=== PATIENT | male | born 1940 | race Caucasian/White ===

== ENCOUNTER 2016-08-07 08:04 | Emergency (ER) | payer OTHER ==
[~2016-08-07] VITALS: Ht 172.7 cm; Wt 59.6 kg
[~2016-08-07 08:04] MED LIST: ADVAIR 100-501 EACH; ADVAIR 250/501 DISK; ADVAIR 250/501 DISK IH; ASPIRIN325 M1; ASPIRIN325 MG PO; Aspirin PO; DAILY VALUE1 EACH PO; DOXYCYCLINE HY100 MG PO; LEVOTHROID25 MCG; LEVOTHYROXINE50 MCG PO; LISINOPRIL10 MG PO; LOPRESSOR25 MG; LOPRESSOR25 MG PO; Levothroid,Synthroid PO; MOBIC7.5 MG PO; PLAVIX75 MG; PLAVIX75 MG PO; PREDNISONE10 MG PO; PREDNISONE50 MG PO; PRILOSEC20 MG PO; SIMVASTATIN40 MG; SPIRIVA RESPIMAT4 GM IH; SPIRIVA1 INHALATI IH; TRAMADOL HCL50 MG PO; Toprol XL PO; VENTOLIN HFA18 GM IH; ZESTRIL,PRINIVI10 M1 PO; ZITHROMAX Z-PA250 MG PO; ZOCOR40 MG PO; Zocor PO; predniSONE PO
[2016-08-07 09:01] LABS: BASOPHIL COUNT 0.2 K/uL (0-0.1); EOSINOPHIL (%) 6.2 % (0-5); EOSINOPHIL COUNT 0.5 K/uL (0-0.3); HEMATOCRIT 46.2 % (38.0-50.0); IMMATURE GRANULOCYTE (%) 0.2 % (0.0-0.7); INSTRUMENT ABS NEUTROPHIL CT 6.2 K/uL; LYMPHOCYTE COUNT 1.3 K/uL (1.0-2.8); MCH 31.8 PG (29.0-34.0); MCV 93.5 FL (86-99); MEAN PLAT.VOLUME 11.5 uM^3 (9.0-12.4); MONOCYTE (%) 6.5 % (3-12); MONOCYTE COUNT 0.6 K/uL (0-0.8); NEUTROPHIL COUNT 6.2 K/uL (1.8-6.4); PLATELET COUNT 198 K/uL (156-360); RBC DIS.WIDTH-CV 12.3 % (11.8-14.6); RBC DIS.WIDTH-SD 42.5 % (39-53); RED BLOOD COUNT 4.94 M/uL (4.00-5.50); WHITE BLOOD COUNT 8.8 K/uL (4.1-10.2)
[2016-08-07 09:12] LABS: CHLORIDE 104 mEq/L (99-109); POTASSIUM 4.5 mEq/L (3.7-5.4); SODIUM 139 mEq/L (136-147)
[2016-08-07 09:13] LABS: GLUCOSE 121 mg/dL (70-99)
[2016-08-07 09:15] LABS: ANION GAP 9 MEQ/L (2-14)
[2016-08-07 09:17] LABS: GFR ESTIMATE (CALCULATED) > 59 mL/min/
[2016-08-07 09:18] LABS: UREA NITROGEN (BUN) 6 mg/dL (9-23)
[2016-08-07 09:22] LABS: TROP-I INTERPRETATION NEGATIVE; TROPONIN-I < 0.01 ng/mL (0.0-0.30)
[2016-08-07] MEDS ORDERED: PREDNISONE50 MG PO (09:42)
[2016-08-07] MEDS ORDERED: DOXYCYCLINE HY100 MG PO (09:42)
[2016-08-07] MEDS ORDERED: DUONEB 2.5-0.5 M3 ML AEROSOL (09:42)
[2016-08-07 10:02] VITALS: BP 158/116
== END 2016-08-07 10:04 | disposition home or self-care (01) ==
LOC: EME 08:04
PROVIDERS: Emergency Medicine
DX: J40 Bronchitis, not specified as acute or chronic (principal); J44.9 Chronic obstructive pulmonary disease, unspecified; I10 Essential (primary) hypertension; E78.5 Hyperlipidemia, unspecified; I25.2 Old myocardial infarction; Z95.5 Presence of coronary angioplasty implant and graft; Z79.82 Long term (current) use of aspirin; Z79.02 Long term (current) use of antithrombotics/antiplatelets; F17.200 Nicotine dependence, unspecified, uncomplicated
CPT/HCPCS: 71010; 80048; 84484; 85025; 93005; 94640; 99281; 99284; J2930; J7040

== ENCOUNTER 2016-08-14 15:13 | Emergency (ER) | payer OTHER ==
[~2016-08-14] VITALS: Ht 172.7 cm; Wt 59.9 kg
[~2016-08-14 15:13] MED LIST changes: +DUONEB 2.5-0.5 M3 ML AEROSOL
[2016-08-14 16:02] LABS: MCH 31.6 PG (29.0-34.0); MCV 92.9 FL (86-99); RBC DIS.WIDTH-CV 12.6 % (11.8-14.6); RBC DIS.WIDTH-SD 43.2 % (39-53); RED BLOOD COUNT 5.06 M/uL (4.00-5.50)
[2016-08-14 16:11] LABS: CHLORIDE 103 mEq/L (99-109); POTASSIUM 4.1 mEq/L (3.7-5.4); SODIUM 139 mEq/L (136-147)
[2016-08-14 16:13] LABS: GLUCOSE 94 mg/dL (70-99)
[2016-08-14 16:14] LABS: ANION GAP 10 MEQ/L (2-14)
[2016-08-14 16:16] LABS: GFR ESTIMATE (CALCULATED) > 59 mL/min/
[2016-08-14 16:17] LABS: UREA NITROGEN (BUN) 8 mg/dL (9-23)
[2016-08-14 16:43] LABS: TROP-I INTERPRETATION NEGATIVE; TROPONIN-I < 0.01 ng/mL (0.0-0.30)
[2016-08-14 16:50] LABS: HEMATOLOGY COMMENT 1 SN; MEAN PLAT.VOLUME 11.5 uM^3 (9.0-12.4); PLAT.SUFFICIENCY ADEQUATE; PLATELET COUNT 213 K/uL (156-360)
[2016-08-14 18:00] VITALS: BP 117/94
[2016-08-14] MEDS ORDERED: AZITHROMYCIN250 MG1 PO (18:12)
[2016-08-14] MEDS ORDERED: PROVENTIL,2.5 MG/3 M IH (18:12)
[2016-08-14] MEDS ORDERED: PREDNISONE50 MG PO (18:12)
== END 2016-08-14 18:27 | disposition home or self-care (01) ==
LOC: EME 15:13
DX: J44.1 Chronic obstructive pulmonary disease with (acute) exacerbation (principal); E78.5 Hyperlipidemia, unspecified; I10 Essential (primary) hypertension; I25.2 Old myocardial infarction; Z98.61 Coronary angioplasty status; Z79.82 Long term (current) use of aspirin; Z79.01 Long term (current) use of anticoagulants; F17.200 Nicotine dependence, unspecified, uncomplicated
CPT/HCPCS: 71010; 80048; 84484; 85027; 93005; 94644; 99281; 99284; J2930

== ENCOUNTER 2016-09-05 17:00 | Emergency (ER) | payer OTHER ==
[~2016-09-05] VITALS: Ht 172.7 cm; Wt 57.5 kg
[~2016-09-05 17:00] MED LIST changes: +AZITHROMYCIN250 MG1 PO; +PROVENTIL,2.5 MG/3 M IH
[2016-09-05 19:25] LABS: HEMATOCRIT 46.1 % (38.0-50.0); MCH 31.3 PG (29.0-34.0); MCHC 33.6 G/DL (30.0-36.0); MCV 92.9 FL (86-99); MEAN PLAT.VOLUME 11.7 uM^3 (9.0-12.4); PLATELET COUNT 211 K/uL (156-360); RED BLOOD COUNT 4.96 M/uL (4.00-5.50); WHITE BLOOD COUNT 10.1 K/uL (4.1-10.2)
[2016-09-05 19:33] LABS: CHLORIDE 105 mEq/L (99-109); POTASSIUM 4.5 mEq/L (3.7-5.4); SODIUM 139 mEq/L (136-147)
[2016-09-05 19:35] LABS: GLUCOSE 93 mg/dL (70-99)
[2016-09-05 19:37] LABS: ANION GAP 9 MEQ/L (2-14)
[2016-09-05 19:39] LABS: GFR ESTIMATE (CALCULATED) > 59 mL/min/
[2016-09-05 19:40] LABS: UREA NITROGEN (BUN) 10 mg/dL (9-23)
[2016-09-05 19:47] LABS: TROP-I INTERPRETATION NEGATIVE; TROPONIN-I < 0.01 ng/mL (0.0-0.30)
[2016-09-05] MEDS ORDERED: PROAIR HFA8.5 GM IH (20:38)
[2016-09-05] MEDS ORDERED: PREDNISONE20 MG PO (20:38)
[2016-09-05] MEDS ORDERED: PROVENTIL,2.5 MG/3 M IH (20:38)
[2016-09-05 21:01] VITALS: BP 116/97
== END 2016-09-05 21:02 | disposition home or self-care (01) ==
LOC: EME 17:00
PROVIDERS: Emergency Medicine
DX: J44.1 Chronic obstructive pulmonary disease with (acute) exacerbation (principal); I10 Essential (primary) hypertension; E78.5 Hyperlipidemia, unspecified; I25.2 Old myocardial infarction; F17.200 Nicotine dependence, unspecified, uncomplicated; Z95.5 Presence of coronary angioplasty implant and graft
CPT/HCPCS: 71010; 80048; 84484; 85027; 93005; 94640; 99281; 99285; J2930

== ENCOUNTER 2016-09-14 07:52 | Emergency (ER) | payer OTHER ==
[~2016-09-14] VITALS: Ht 172.7 cm; Wt 56.5 kg
[~2016-09-14 07:52] MED LIST changes: +PREDNISONE20 MG PO; +PROAIR HFA8.5 GM IH
[2016-09-14 08:31] LABS: HEMATOCRIT 46.3 % (38.0-50.0); MCH 31.5 PG (29.0-34.0); MCHC 33.5 G/DL (30.0-36.0); MCV 94.1 FL (86-99); RBC DIS.WIDTH-CV 11.8 % (11.8-14.6); RBC DIS.WIDTH-SD 40.8 % (39-53); RED BLOOD COUNT 4.92 M/uL (4.00-5.50)
[2016-09-14 08:34] LABS: CHLORIDE 103 mEq/L (99-109); POTASSIUM 4.6 mEq/L (3.7-5.4); SODIUM 139 mEq/L (136-147)
[2016-09-14 08:36] LABS: GLUCOSE 158 mg/dL (70-99)
[2016-09-14 08:38] LABS: ANION GAP 10 MEQ/L (2-14)
[2016-09-14 08:40] LABS: GFR ESTIMATE (CALCULATED) > 59 mL/min/
[2016-09-14 08:41] LABS: UREA NITROGEN (BUN) 13 mg/dL (9-23)
[2016-09-14 08:44] LABS: WHITE BLOOD COUNT 18.5 K/uL (4.1-10.2)
[2016-09-14 08:46] LABS: TROP-I INTERPRETATION NEGATIVE; TROPONIN-I < 0.01 ng/mL (0.0-0.30)
[2016-09-14 09:32] LABS: MEAN PLAT.VOLUME 11.6 uM^3 (9.0-12.4); PLAT.SUFFICIENCY ADEQUATE; PLATELET COUNT 215 K/uL (156-360)
[2016-09-14 12:21] LABS: TROP-I INTERPRETATION NEGATIVE; TROPONIN-I 0.01 ng/mL (0.0-0.30)
[2016-09-14] MEDS ORDERED: PREDNISONE50 MG PO (12:52)
[2016-09-14] MEDS ORDERED: LEVAQUIN500 MG PO (12:57)
[2016-09-14 13:17] VITALS: BP 142/95
== END 2016-09-14 13:19 | disposition home or self-care (01) ==
LOC: EME 07:52
PROVIDERS: Emergency Medicine
DX: J44.1 Chronic obstructive pulmonary disease with (acute) exacerbation (principal); J20.9 Acute bronchitis, unspecified; I10 Essential (primary) hypertension; E78.5 Hyperlipidemia, unspecified; Z95.5 Presence of coronary angioplasty implant and graft; Z79.02 Long term (current) use of antithrombotics/antiplatelets; Z79.82 Long term (current) use of aspirin; F17.200 Nicotine dependence, unspecified, uncomplicated
CPT/HCPCS: 71020; 71275; 80048; 84484; 85027; 93005; 94640; 99281; 99285; J7030; J7512

== ENCOUNTER → 2016-10-01 | Outpatient (CLI) | payer OTHER ==
[~2016-10-01] MED LIST changes: +LEVAQUIN500 MG PO
== END | disposition home or self-care (01) ==
LOC: RES 10:21
DX: J44.1 Chronic obstructive pulmonary disease with (acute) exacerbation (principal)
CPT/HCPCS: 94060; 94727; 94729

== ENCOUNTER 2017-12-12 06:08 | Observation (INO) | payer OTHER ==
[~2017-12-12] VITALS: Ht 175.3 cm; Wt 53.8 kg
[2017-12-12 06:51] LABS: HEMATOCRIT 42.7 % (38.0-50.0); HEMOGLOBIN 14.7 G/DL (12.5-16.6); MCH 31.3 PG (29.0-34.0); MCHC 34.4 G/DL (30.0-36.0); PLATELET COUNT 182 K/uL (156-360); RBC DIS.WIDTH-CV 12.4 % (11.8-14.6); RBC DIS.WIDTH-SD 41.1 % (39-53); RED BLOOD COUNT 4.69 M/uL (4.00-5.50); WHITE BLOOD COUNT 11.7 K/uL (4.1-10.2)
[2017-12-12 07:40] LABS: CHLORIDE 105 MEQ/L (99-109); POTASSIUM 3.9 MEQ/L (3.7-5.4); SODIUM 140 MEQ/L (136-147)
[2017-12-12 07:46] LABS: CREATININE 0.8 MG/DL (0.6-1.3); GFR ESTIMATE (CALCULATED) > 59 mL/min/ (58.99-99999); GLUCOSE 113 mg/dL (70-99); UREA NITROGEN (BUN) 12 mg/dL (9-23)
[2017-12-12] MEDS ORDERED: LISINOPRIL20 MG PO (13:59)
[2017-12-12 14:00] VITALS: BP 143/82
[2017-12-12] MEDS ORDERED: BREO ELLIPTA I1 EACH IH (14:04)
[2017-12-12] MEDS ORDERED: INCRUSE ELLI62.5 MCG IH (14:04)
[2017-12-12] MEDS ORDERED: HYDROCODON-ACE1 EAC7 PO (14:05)
[2017-12-12] MEDS ORDERED: NICOTINE PATCH1 EAC1 TD (14:05)
[2017-12-12] MEDS ORDERED: TAMSULOSIN HCL0.4 MG PO (14:06)
[2017-12-12] MEDS ORDERED: CARBIDOPA/LEVO1 EACH PO (14:06)
[2017-12-12 16:26] VITALS: BP 165/93
[2017-12-12 23:07] VITALS: BP 130/65
[2017-12-13 07:14] VITALS: BP 162/85
[2017-12-13] MEDS ORDERED: ROXICODONE5 MG PO (14:01)
== END 2017-12-13 15:20 | disposition home or self-care (01) ==
LOC: EME 06:08 → EDOF 09:34 → 3EAST 09:34 → EDOF 09:34 → ENRESERV 09:37 → EDOF 12:50 → 3EAST 13:21
PROVIDERS: Emergency Medicine
DX: S22.42XA Multiple fractures of ribs, left side, initial encounter for closed fracture (principal); R09.02 Hypoxemia; G89.11 Acute pain due to trauma; W18.11XA Fall from or off toilet without subsequent striking against object, initial encounter; J43.9 Emphysema, unspecified; Z99.81 Dependence on supplemental oxygen; I25.10 Atherosclerotic heart disease of native coronary artery without angina pectoris; I10 Essential (primary) hypertension; Z95.5 Presence of coronary angioplasty implant and graft; F17.210 Nicotine dependence, cigarettes, uncomplicated; Z79.82 Long term (current) use of aspirin; Z79.52 Long term (current) use of systemic steroids
CPT/HCPCS: 71045; 71260; 74177; 80048; 85027; 94640; 94799; 99281; 99285; G0378; J1885; J2270; J2405; J3010